=== PATIENT | male | born 1955 | race Asian ===

== ENCOUNTER 2019-03-08 03:28 | Emergency (ER) | payer OTHER ==
[2019-03-08 03:40] VITALS: TEMP 98.8; BMI 27.8
--- NOTE | 2019-03-08 03:46 | PDOC ---
History of Present Illness - General Chief Complaint: Injury Stated Complaint: LT FOOT PAIN Time Seen by Provider: 03/08/19 03:29 - History of Present Illness Initial Comments: 03/08/19 03:40 63yo M hx NIDDM c/b diabetic neuropathy on lyrica presents to the ED after rolling his L ankle when he stood up from his chair 30 mins ago. Pt reports he was having trouble sleeping, tried to stand when his ankle rolled. Denies headstrike/LOC. Reports pain to entire foot, L lateral malleolus mostly. No treatments tried for pain. Pt was driven in by for further evaluation. Denies recent fevers, chills, cp, sob, headache, focal weakness/numbness, abd pain, n/v/d, rashes. No hx injuries to LLE. Past History - Past Medical History Allergies/Adverse Reactions: Allergies Allergy/AdvReac Type Severity Reaction Status Date / Time No Known Allergies Allergy Unverified 03/08/19 03:31 Home Medications: Ambulatory Orders Atorvastatin Ca [Lipitor] 20 mg PO HS 03/08/19 Metformin HCl [Glucophage] 1,000 mg PO BID 03/08/19 Oxycodone HCl/Acetaminophen [Percocet 5-325 mg Tablet] 1 tab PO Q6H #10 tablet MDD 4 03/08/19 COPD: No Diabetes: Yes Hypercholesterolemia: Yes Other medical history: PERIPHERAL NEUROPATHY - Suicide/Smoking/Psychosocial Hx Smoking History: Never smoked Review of Systems - Review of Systems Comments:: 03/08/19 03:42 GENERAL/CONSTITUTIONAL: No fever or chills. No weakness. HEAD, EYES, EARS, NOSE AND THROAT: No change in vision. No ear pain or discharge. No sore throat. GASTROINTESTINAL: No nausea, vomiting, diarrhea or constipation. GENITOURINARY: No dysuria, frequency, or change in urination. CARDIOVASCULAR: No chest pain or shortness of breath. RESPIRATORY: No cough, wheezing, or hemoptysis. MUSCULOSKELETAL: +L ankle/foot pain. No neck or back pain. SKIN: No rash NEUROLOGIC: No headache, vertigo, loss of consciousness, or change in strength/ sensation. ENDOCRINE: No increased thirst. No abnormal weight change. HEMATOLOGIC/LYMPHATIC: No anemia, easy bleeding, or history of blood clots. ALLERGIC/IMMUNOLOGIC: No hives or skin allergy. *Physical Exam - Vital Signs Last Vital Signs Temp Pulse Resp BP Pulse Ox 98.8 F 105 H 16 151/86 99 03/08/19 03:33 03/08/19 03:33 03/08/19 03:33 03/08/19 03:33 03/08/19 03:33 - Physical Exam Comments: 03/08/19 03:42 GENERAL: Awake, alert, and fully oriented, in no acute distress HEAD: No signs of trauma EYES: PERRLA, EOMI, sclera anicteric, conjunctiva clear ENT: Nares patent, oropharynx clear without exudates. Moist mucosa NECK: Normal ROM, supple, no lymphadenopathy, JVD, or masses LUNGS: Breath sounds equal, clear to auscultation bilaterally. No wheezes, and no crackles HEART: Regular rate and rhythm, normal S1 and S2, no murmurs, rubs or gallops ABDOMEN: Soft, nontender, normoactive bowel sounds. No guarding, no rebound. No masses EXTREMITIES: L distal tib/fib with edema, +ttp and edema to lateral maleolus and medial maleolus. +deformity to ankle. No midfoot pain. Foot is WWP, equal sensation btwn b/l L and R feet. Normal strength plantar and dorsiflexion. BACK: No midline cervical, thoracic, or lumbar ttp NEUROLOGICAL: Normal speech, cranial nerves intact, equal strength and sensation b/l SKIN: Warm, Dry, normal turgor, no rashes or lesions noted. ED Treatment Course - LABORATORY CBC & Chemistry Diagram: 03/08/19 05:15 03/08/19 05:15 - RADIOLOGY Radiology Studies Ordered: Category Date Time Status ANKLE & FOOT-LEFT* [RAD] Stat Radiology 03/08/19 03:39 Ordered LEG TIB/FIB-LEFT [RAD] Stat Radiology 03/08/19 03:38 Ordered Medical Decision Making - Medical Decision Making 03/08/19 03:40 63yo M presents to the ED with L ankle and foot pain after inversion injury when trying to stand up Concern for acute fracture given edema/bony ttp and deformity on exam Plan for pain control, plain films, reassess XR tech has been called in from home 03/08/19 05:00 XR with acute trimalleolar fracture as well as tibiotalar dislocation Case discussed with Dr. Pride who will be here in 1 hour for management In the meantime, pain not well controlled with percocet Plan to place IV for pre-op labs, IV morphine All results and plan discussed extensively with pt and his His LLE remains NVI, compartments soft 03/08/19 06:26 Dr. Pride currently at the bedside evaluating pt 03/08/19 07:00 Dr. Pride currently reducing dislocation Case has been signed out to day attending Dr. Mitchell for further mgmt/dispo *DC/Admit/Observation/Transfer Diagnosis at time of Disposition: Trimalleolar fracture of ankle, closed, Fall, Unstable left ankle Dislocation of left ankle joint Qualifiers: Encounter type: initial encounter Qualified Code(s): S93.05XA - Dislocation of left ankle joint, initial encounter - Discharge Dispostion Disposition: HOME Condition at time of disposition: Good - Prescriptions Prescriptions: Oxycodone HCl/Acetaminophen [Percocet 5-325 mg Tablet] 1 tab PO Q6H #10 tablet MDD 4 - Referrals - Patient Instructions Printed Discharge Instructions: DI for Ankle Fracture Additional Instructions: you have a bad fracture of your ankle. YOU MUST NOT BEAR WEIGHT on that leg. You MUST go directly to Dr. Blackwell's office--you will need an operation to fix your ankle. REturn to the ED if you are unable to follow up with Dr. Lainez, or for new or worsening symptoms. - Post Discharge Activity - Attestations Physician Attestion: 03/08/19 18:38 I, Dr. Shameka Atwood MD, attest that this document has been prepared under my direction and personally reviewed by me in its entirety. I further attest, that it accurately reflects all work, treatment, procedures and medical decision -making performed by me.
[2019-03-08] MEDS ORDERED: morphine CARPU-JECT 4 MG/1 ML DISP.SYRIN IVPUSH ONE (04:55)
[2019-03-08] MEDS ORDERED: morphine SULFATE 4 MG/ML VIAL ONE (04:58)
[2019-03-08] MEDS ORDERED: LIDOCAINE HCL 2% (50ML VIAL) SQ ONE (06:25)
[2019-03-08] MEDS ORDERED: LIDOCAINE HCL 2% (20ML MULTI-DOSE VIAL) NR ONE (06:25)
[2019-03-08 07:04] LABS: ALBUMIN 4.4 g/dl (3.4-5.0); BILIRUBIN,TOTAL 0.5 mg/dL (0.2-1); BLOOD UREA NITROGEN 17.3 mg/dL (7-18); CALCIUM 9.1 mg/dL (8.5-10.1); POTASSIUM 3.9 mmol/L (3.5-5.1); TOT PROT 8.1 g/dl (6.4-8.2)
--- NOTE | 2019-03-08 07:24 | CON.ORTH ---
Consult Consult Specialty:: Orthopedic surgery Reason for Consultation:: Left ankle injury - History of Present Illness Chief Complaint: Left ankle pain History of Present Illness: 63 year old gentleman here for evaluation of a left ankle injury. The patient fell getting out of bed this morning. He then tried to get up and fell down again. He noted pain, swelling and deformity in the ankle. Of note he has diabetes and neuropathy with typically decreased sensation. He has no change in his sensation at this time. He has no pain elsewhere. No previous injuries to this ankle. 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 Cardio/Vascular: Yes: Hyperlipdemia Endocrine: Yes: Diabetes Insipidus - Alcohol/Substance Use History of Substance Use: reports: None - Smoking History Smoking history: Never smoked - Social History Usual Living Arrangement: With Spouse Home Medications - Allergies Allergies/Adverse Reactions: Allergies Allergy/AdvReac Type Severity Reaction Status Date / Time No Known Allergies Allergy Unverified 03/08/19 03:31 - Home Medications Home Medications: Ambulatory Orders Atorvastatin Ca [Lipitor] 20 mg PO HS 03/08/19 Metformin HCl [Glucophage] 1,000 mg PO BID 03/08/19 Oxycodone HCl/Acetaminophen [Percocet 5-325 mg Tablet] 1 tab PO Q6H #10 tablet MDD 4 03/08/19 Review of Systems - Review of Systems Constitutional: denies: Chills, Diaphoresis, Fever Eyes: denies: Blurred Vision, Double Vision, Recent Change in Vision HENT: denies: Difficult Swallowing, Nasal Congestion, Throat Pain Cardiovascular: denies: Chest Pain, Palpitations, Shortness of Breath Physical Exam for Ortho Vital Signs: Vital Signs Temperature 98.8 F 03/08/19 03:33 Pulse Rate 105 H 03/08/19 03:33 Respiratory Rate 16 03/08/19 03:33 Blood Pressure 151/86 03/08/19 03:33 O2 Sat by Pulse Oximetry (%) 99 03/08/19 03:33 Constitutional: Yes: Well Nourished, No Distress, Calm Respiratory: Yes: Regular Extremities: Yes: Other (Left ankle:) Labs: CBC, BMP 03/08/19 05:15 Imaging - Results X-ray: Report Reviewed, Image Reviewed (L ankle trimalleolar fracture dislocation) Problem List - Problems (1) Dislocation of left ankle joint Assessment/Plan: I discussed today's findings with Tammy and his . He has suffered an ankle fracture dislocation. This is a combination of 3 different spots broken on the ankle along with some of the ligaments being torn. This is a unstable type injury and requires urgent closed reduction. Typically the best long-term care plan is for open reduction internal fixation to restore stability to the ankle. We discussed the initial treatment alternatives including leaving the ankle now reduced which would result potentially in catastrophic injury to the skin and neurovascular structures. We discussed the option of initial operative care which carries significant risk of skin complications given the swelling already present, injury to the soft tissue envelope and underlying diabetes and associated diseases. I reviewed the risks of closed reduction, a small risk of infection from local anesthetic being administered, risk of inadequate reduction or loss of reduction. The patient and his elected to proceed. Procedure: Left ankle was prepped with chlorhexidine. Under sterile technique, a 22-gauge needle was inserted into the ankle joint. 10 cc of 2% lidocaine were injected. Injection was well tolerated. After allowing the patient to sit for 10 minutes, a closed reduction was effected. The patient lifted up his leg following the closed reduction before the splint was placed in the ankle seemed to re-dislocate. It was reduced again. A AO type splint was now placed after placing adequate padding all about the ankle and heel. Post reduction films demonstrate redislocation. A second reduction was performed, providing a dose of versed to relax the patient. A cast was placed to better maintain the reduction. Post reduction films satisfactory. The patient was instructed that he is to be strictly nonweightbearing. He should constantly elevate the foot. Given his neuropathy, he is at risk for re- dislocating the ankle or perioperative complications and minimizing any stress on the ankle will help to optimize his care. His is cared for by Dr. Blackwell and she would like to take him to Dr. Blackwell for surgery. I contacted 's office and arranged an appointment for today. We discussed signs of a too tight cast and that these should be managed immediately should they present. Code(s): S93.05XA - DISLOCATION OF LEFT ANKLE JOINT, INITIAL ENCOUNTER Qualifiers: Encounter type: initial encounter Qualified Code(s): S93.05XA - Dislocation of left ankle joint, initial encounter
[2019-03-08] MEDS ORDERED: MIDAZOLAM HCL 2 MG/2 ML SINGLE DOSE VIAL IVPUSH ONE (07:57)
[2019-03-08] MEDS ORDERED: MIDAZOLAM HCL 2 MG/2 ML SINGLE DOSE VIAL ONE (08:00)
[2019-03-08 08:20] LABS: INR 1.01 (0.83-1.09); PROTHROMBIN TIME (PATIENT) 11.9 SEC (9.7-13.0)
[2019-03-08 08:24] VITALS: PULSE 90
[2019-03-08 08:43] LABS: BASO % 0.3 % (0-2.0); EOS % 0.5 % (0-4.5); HEMATOCRIT 37.6 % (35.4-49); HEMOGLOBIN 12.6 GM/dL (11.7-16.9); LYMPH % 8.6 % (8-40); MCH 26.6 pg (25.7-33.7); MCHC 33.5 g/dl (32.0-35.9); MEAN CELL VOLUME 79.5 fl (80-96); MEAN PLT VOLUME 8.9 fl (7.5-11.1); MONO % 6.3 % (3.8-10.2); NEUT % 84.3 % (42.8-82.8); PLATELET COUNT 228 K/MM3 (134-434); RBC 4.72 M/mm3 (4.00-5.60); RDW 14.4 % (11.9-15.9); WHITE BLOOD COUNT 18.1 K/mm3 (4.0-10.0)
[2019-03-08 09:35] VITALS: BP 146/70
--- NOTE | 2019-03-08 09:42 | PDOC ---
*Physical Exam - Vital Signs Last Vital Signs Temp Pulse Resp BP Pulse Ox 98.8 F 90 16 136/73 100 03/08/19 03:33 03/08/19 08:46 03/08/19 08:46 03/08/19 08:46 03/08/19 08:46 ED Treatment Course - LABORATORY CBC & Chemistry Diagram: 03/08/19 05:15 03/08/19 05:15 - ADDITIONAL ORDERS Additional order review: Laboratory Results 03/08/19 03/08/19 03/08/19 05:16 05:15 05:15 PT with INR 11.90 INR 1.01 PTT (Actin FS) 26.4 Sodium 138 Potassium 3.9 Chloride 100 Carbon Dioxide 28 Anion Gap 11 BUN 17.3 Creatinine 1.0 Est GFR (CKD-EPI)AfAm 93.73 Est GFR (CKD-EPI)NonAf 80.87 Random Glucose 159 H Calcium 9.1 Total Bilirubin 0.5 AST 26 ALT 37 Alkaline Phosphatase 79 Total Protein 8.1 Albumin 4.4 03/08/19 05:15 RBC 4.72 MCV 79.5 L MCHC 33.5 RDW 14.4 MPV 8.9 Neutrophils % 84.3 H Lymphocytes % 8.6 Monocytes % 6.3 Eosinophils % 0.5 Basophils % 0.3 - RADIOLOGY Radiology Studies Ordered: Category Date Time Status ANKLE & FOOT-LEFT* [RAD] Stat Radiology 03/08/19 07:09 Completed ANKLE-LEFT [RAD] Stat Radiology 03/08/19 07:51 Ordered - Medications Given in the ED: ED Medications Discontinued Medications Generic Name Dose Route Start Last Admin Trade Name Freq PRN Reason Stop Dose Admin Lidocaine HCl 10 mg 03/08/19 06:25 03/08/19 06:32 Xylocaine 2% SQ 03/08/19 06:26 10 mg ONCE ONE Administration Midazolam HCl 2 mg 03/08/19 07:57 03/08/19 08:08 Versed - IVPUSH 03/08/19 07:58 2 mg ONCE ONE Administration Morphine Sulfate 4 mg 03/08/19 04:55 03/08/19 05:15 Morphine Injection - IVPUSH 03/08/19 04:56 4 mg ONCE ONE Administration Oxycodone/Acetaminophen 1 combo 03/08/19 03:39 03/08/19 03:42 Percocet 5/325 - PO 03/08/19 03:40 1 combo ONCE ONE Administration Medical Decision Making - Medical Decision Making 03/08/19 09:[address] Pride--in good position. Has immediate follow up with Dr. Lainez. Will discharge with instructions to proceed immediately to Dr. Blackwell's office. offered admission, but prefers to have surgery performed by Dr. Lainez. Patient and understand that he should return immediately to the ED if he is unable to be seen in Dr. Lainez office. 03/08/19 09:42 *DC/Admit/Observation/Transfer Diagnosis at time of Disposition: Dislocation of left ankle joint Qualifiers: Encounter type: initial encounter Qualified Code(s): S93.05XA - Dislocation of left ankle joint, initial encounter - Discharge Dispostion Disposition: HOME Condition at time of disposition: Good Decision to Admit order: No - Prescriptions Prescriptions: Oxycodone HCl/Acetaminophen [Percocet 5-325 mg Tablet] 1 tab PO Q6H #10 tablet MDD 4 - Referrals - Patient Instructions Printed Discharge Instructions: DI for Ankle Fracture Additional Instructions: you have a bad fracture of your ankle. YOU MUST NOT BEAR WEIGHT on that leg. You MUST go directly to Dr. Blackwell's office--you will need an operation to fix your ankle. REturn to the ED if you are unable to follow up with Dr. Lainez, or for new or worsening symptoms. - Post Discharge Activity
== END 2019-03-08 09:58 | disposition home or self-care (01) ==
LOC: FER 03:28
PROC: 0QSKXZZ Reposition Left Fibula, External Approach (ICD-10-PCS; principal; 2019-03-08)
PROC: 3E033NZ Introduction of Analgesics, Hypnotics, Sedatives into Peripheral Vein, Percutaneous Approach (ICD-10-PCS; 2019-03-08)
PROC: 3E033GC Introduction of Other Therapeutic Substance into Peripheral Vein, Percutaneous Approach (ICD-10-PCS; 2019-03-08)
DX: S82.852A Displaced trimalleolar fracture of left lower leg, initial encounter for closed fracture (principal); X50.0XXA Overexertion from strenuous movement or load, initial encounter; Y93.89 Activity, other specified; Y92.89 Other specified places as the place of occurrence of the external cause; E11.42 Type 2 diabetes mellitus with diabetic polyneuropathy; Z79.84 Long term (current) use of oral hypoglycemic drugs
CPT/HCPCS: 36415; 73590-TC-LT-FY; 73610-TC-LT-FY; 73630-TC-LT; 80053; 85025; 85610; 85730; 99283-25

== ENCOUNTER 2020-11-10 16:19 | Emergency (ER) | payer OTHER ==
[2020-11-10] MEDS ORDERED: ACETAMINOPHEN 325 MG TABLET (FP) PO ONE (16:37)
[2020-11-10 16:44] VITALS: BP 125/69; PULSE 107; TEMP 98.9; BMI 28.5
[2020-11-10] MEDS ORDERED: ACETAMINOPHEN 325 MG TABLET (FP) ONE (17:12)
== END 2020-11-10 20:02 | disposition home or self-care (01) ==
LOC: FER 16:19
DX: S00.12XA Contusion of left eyelid and periocular area, initial encounter (principal)
CPT/HCPCS: 70450-TC; 70486-TC; 99284-25

== ENCOUNTER 2022-10-16 22:01 | Emergency (ER) | payer BC, OTHER ==
[2022-10-16] MEDS ORDERED: DALBAVANCIN HCL 1,500 MG in DEXTROSE 5%-WATER - 500 ML IVPB ONE (22:07)
[2022-10-16 22:09] VITALS: BP 131/79; PULSE 108; RESP 16; TEMP 98.6; BMI 27.8
[2022-10-16] MEDS ORDERED: AMOX TR/POT CLAV 875MG/125MG TABLETS (FP) PO ONE (22:10)
[2022-10-16] MEDS ORDERED: DALBAVANCIN HCL 500 MG VIAL (RESTRICTED TO ID ONLY) IVPB ONE (22:20)
[2022-10-16 22:33] LABS: HEMATOCRIT 42.6 % (35.4-49); HEMOGLOBIN 14.8 G/dL (11.7-16.9); MCH 27.4 pg (25.7-33.7); MCHC 34.6 g/dl (32.0-35.9); MEAN CELL VOLUME 79.1 fl (80-96); PLATELET COUNT 234.4 10^3/uL (134-434); RBC 5.38 10^6/uL (4.00-5.60); RDW 15.1 % (11.9-15.9)
[2022-10-16 22:43] LABS: BILIRUBIN,TOTAL 0.4 mg/dl (0.2-1); CREATININE 0.8 mg/dl (0.55-1.3); TOT PROT 7.5 g/dl (6.4-8.2)
[2022-10-16 22:49] LABS: PLATELET ESTIMATE ADEQUATE
[2022-10-16] MEDS ORDERED: AMOX TR/POT CLAV 875MG/125MG TABLETS (FP) ONE (22:50)
== END 2022-10-16 23:21 | disposition home or self-care (01) ==
LOC: FER 22:01
DX: L08.9 Local infection of the skin and subcutaneous tissue, unspecified (principal); L03.113 Cellulitis of right upper limb; L02.511 Cutaneous abscess of right hand
CPT/HCPCS: 36415; 73130-TC-RT-FY; 80053; 85027; 99284-25; J0875